=== PATIENT | male | born 2000 | race Caucasian/White ===

== ENCOUNTER 2022-04-08 22:46 | Emergency (ER) | payer SELFPAY ==
[2022-04-08 23:07] VITALS: BP 139/90
--- NOTE | 2022-04-08 23:29 | ED Psychosocial ---
General Chief Complaint: Psych/Social Disorder Stated Complaint: SUICIDAL IDEATION Nursing Triage Note: PT PRESENTS AND STATED "THE NOTE THEY FOUND WASNT EVEN A SUICIDE NOTE. I WAS JUST TELLING MY GIRLFRIEND I WAS LEAVING TOMORROW AND MY PARENTS WOULD TAKE MY PHONE". THERE IS NO ONE PRESENT WITH THE PT. PT STATED "MY GIRLFRIENDS PARENTS MADE ME COME HERE AND TOLD ME I HAVE TO CHECK MYSELF IN FOR JUST TONIGHT BECAUSE I CANT STAY THERE ANYMORE AND MY PARENTS WONT BE HERE UNTIL TOMORROW". PT DENIES SI/HI. PT STATING "THEY JUST TOLD ME I HAD TO COME HERE SO IM HERE FOR THE NIGHT" Source: patient Exam Limitations: no limitations History of Present Illness Date Seen by Provider: Apr 08, 2022 Time Seen by Provider: 23:07 Initial Comments Patient ER by private conveyance with his girlfriend's parents who dropped him off stating that they found a note and that they interpreted as being suicidal and then left before this provider could speak to them. The patient states he is not suicidal nor has he been suicidal. He has been suicidal years ago but not since has been with his girlfriend and certainly not in the past week and a half that [place] been [place] the [place]. He is originally from [place] and was staying with his girlfriend but he was apparently having a verbal altercation over the phone with the parents and so they kicked him out of the home. He is going to go home to [place]. He left a written note for his girlfriend stating that if she gets this after he left that he cared for her and still wanted to be with her but had to go home to [place]. The parents interpreted this as being suicidal but the patient is a imminently denies ever being suicidal. The police were involved tonight and they had no interest apparently and charging him with anything or taking him into protective custody and left the scene of the house. Allergies and Home Medications Allergies Coded Allergies: No Known Drug Allergies (Unverified , 04/09/22) Patient Home Medication List Home Medication List Reviewed: Yes Ondansetron (Ondansetron Odt) 4 Mg Tab.rapdis, 4 MG PO Q6H PRN for NAUSEA/VOMITING Prescribed by: RON DIXON on 04/09/22 0605 Review of Systems Constitutional: No chills, No diaphoresis EENTM: No no symptoms reported, No ear discharge, No hearing loss Respiratory: No cough, No dyspnea on exertion Cardiovascular: see HPI; No chest pain, No palpitations Gastrointestinal: No abdominal pain, No nausea, No vomiting Genitourinary: No discharge, No dysuria Musculoskeletal: No back pain, No joint pain Skin: No change in color, No lesions Psychiatric/Neurological: Denies Anxiety, Denies Depressed, Denies Headache All Other Systems Reviewed Negative Unless Noted: Yes Past Eglqfts-Vfujgd-Uvpbqw Hx Patient Social History Tobacco Use?: Yes Tobacco type used: Cigarettes Smoking Status: Current Everyday Smoker Substance use?: Yes Substance type: Marijuana Substance frequency: Daily Alcohol Use?: No Pt feels they are or have been: No Immunizations Up To Date Influenza Vaccine Up-to-Date: No; Not Current Physical Exam Vital Signs - First Documented 04/08/22 23:07 Temp 36.8 Pulse 115 Resp 20 B/P (MAP) 139/90 (106) Pulse Ox 96 Capillary Refill : Height, Weight, BMI Height: '" Weight: lbs. oz. kg; BMI Method: General Appearance: WD/WN, no apparent distress HEENT: normal ENT inspection, pharynx normal Neck: full range of motion, normal inspection Respiratory: lungs clear, normal breath sounds, no respiratory distress, no accessory muscle use Cardiovascular: normal peripheral pulses, regular rate, rhythm, no edema Peripheral Pulses: 2+ Radial Pulses (R), 2+ Radial Pulses (L) Gastrointestinal: normal bowel sounds, non tender, soft Extremities: normal range of motion, non-tender, normal capillary refill Neurologic/Psychiatric: alert, normal mood/affect, oriented x 3, other (Denies suicidal or homicidal ideation) Suicide Risk Suicide Risk Suicide Risk Level / RN Screen: Low (No risk) Low Suicide Risk Level []Suicidal Ideation WITHOUT method, intent, plan or behavior more than a month ago []]Modifiable risk factors and strong protective factors []No reported history of suicidal ideation or behavior []Patient reports/exhibits symptoms consistent with psychosis []Patient reports a plan that would be unrealistic/impossible to complete and intent []Suicide attempt prior to arrival (Indicates at LEAST Low Suicide Risk, consider other risk factors) Moderate Suicide Risk Level: []Suicidal ideation with method, WITHOUT plan, intent or behavior in the past month []Multiple risk factors and few protective factors []Patient reports intent to follow through on plan to end life if allowed to leave hospital, and has attempted to elope from the hospital High Suicide Risk Level: [] Suicidal ideation with intent or intent with a plan in the past month [] Patient has harmed self or attempted suicide while in the hospital [] Patient has hx of or current Command Auditory hallucinations to harm self or others that they follow without hesitation [] Patient refuses to disclose plan, and indicates intent to complete [] Patient reports plan that is possible to accomplish and/or has means to complete Risk factors supporting recommendation: [] Non-compliance with treatment (acute or chronic) [] Patient has access to or owns firearms and/or stockpiled medications [] Hx Impulsive behavior [] Pending incarceration or homelessness [] Sexual abuse [] Family history and/or exposure to suicide [] Adverse childhood experiences [] Exposure to violence or negative socio-political cultural, and economic forces [] Current or hx of substance use/abuse [] Chronic physical pain or other acute medical problem (AIDS, COPD, Cancer, etc) [] Perceived burden on family or others [] Patient has attempted to elope [] Unable to answer and/or unable to identify [] Refuses to agree to a safety plan Protective Factors supporting recommendation: [] Identifies reasons for living [] Future plans/goals [] Engaged in work or School [] Good family support network [] Good social support network [] Responsibility to family [] Belief that suicide is immoral, against their buddhist beliefs [] High spirituality and involvement in catholic community [] Fear of or dying due to pain and suffering [] Established outpt psychiatric services [] Unable to answer and/or unable to identify Risk Assessment Tool Score: Low Progress/Results/Core Measures Results/Orders Vital Signs/I&O 04/08/22 23:07 Temp 36.8 Pulse 115 Resp 20 B/P (MAP) 139/90 (106) Pulse Ox 96 Blood Pressure Mean: 106 Progress Progress Note : Time: 23:25 Progress Note The patient came under false pretenses believing that his girlfriend's parents told him that he had to check him for suicidal ideation even though he denies being suicidal. We explained to them that based on him being 21 years old he can make his own decisions and if he is not feeling suicidal or homicidal then he is free to go and he states that this is what he wants to do. We did do a medical screening exam and determined the patient not to have any pressing medical emergency and did give him the number for [place] [phone] save Departure Impression Primary Impression: General medical exam Disposition: HOME, SELF-CARE Condition: Stable Departure-Patient Inst. Decision time for Depature: 23:28 Referrals: NO,LOCAL PHYSICIAN (PCP/Family) Primary Care Physician Patient Instructions: Diet and Health Add. Discharge Instructions: Make plans to follow-up with a primary care provider to help manage your health. If you have concerns about mental health this following number goes to [facility]: [phone]. All discharge instructions reviewed with patient and/or family. Voiced understanding. RON DIXON Apr 08, 2022 23:29
[2022-04-09] MEDS ORDERED: ONDA4TAB11 PO (06:05)
== END 2022-04-08 23:37 | disposition home or self-care (01) ==
LOC: ER 22:48
DX: Z00.00 Encounter for general adult medical examination without abnormal findings (principal); F17.210 Nicotine dependence, cigarettes, uncomplicated; Z28.310 Unvaccinated for COVID-19
CPT/HCPCS: 99281

== ENCOUNTER 2022-04-09 02:43 | Emergency (ER) | payer SELFPAY ==
[2022-04-09 02:51] VITALS: BP 115/75
[2022-04-09 02:55] LABS: BASOPHILS # (AUTO) 0.1 10^3/uL (0.0-0.1); BASOPHILS % (AUTO) 1 % (0-10); EOSINOPHILS % (AUTO) 0 % (0-10); HEMATOCRIT 50 % (40-54); HEMOGLOBIN 16.7 g/dL (13.3-17.7); LYMPHOCYTES % (AUTO) 24 % (12-44); MEAN CORPUSCULAR HEMOGLOBIN 29 pg (25-34); MEAN CORPUSCULAR HGB CONC 34 g/dL (32-36); MEAN CORPUSCULAR VOLUME 86 fL (80-99); MEAN PLATELET VOLUME 9.6 fL (9.0-12.2); MONOCYTES # (AUTO) 0.5 10^3/uL (0.0-1.0); MONOCYTES % (AUTO) 6 % (0-12); NEUTROPHILS # (AUTO) 5.7 10^3/uL (1.8-7.8); NEUTROPHILS % (AUTO) 69 % (42-75); PLATELET COUNT 200 10^3/uL (130-400); WHITE BLOOD COUNT 8.3 10^3/uL (4.3-11.0)
[2022-04-09] MEDS ORDERED: ONDANSETRON 4 MG/2 ML (SDV) Z0FRAN IVP ONE (03:00)
[2022-04-09] MEDS ORDERED: DOXYCYCLINE INJECTION 100 MG in NS (IVPB) 100 ML IV ONE (03:00)
--- NOTE | 2022-04-09 03:04 | ED Abdominal Pain ---
General Chief Complaint: Abdominal/GI Problems Stated Complaint: SUICIDAL IDEATION Nursing Triage Note: PT REPORTS ABD PAIN WITH N/V THAT STARTED TONIGHT. REPORTS RASH FROM TICKBITE THAT STARTED AROUND 1930. Source of Information: Patient Exam Limitations: No Limitations History of Present Illness Date Seen by Provider: Apr 09, 2022 Time Seen by Provider: 02:33 Initial Comments Patient to the ER by EMS from the parking lot of [facility] with chief complaint that he recently came home was prashant. This is his second visit prashant the first time his family who he was living with dropped him off because he left a note and they interpreted this as being suicidal but he denied he was suicidal at that time. This time he says around 7:30 at night last night he was out in the [place] with his girlfriend and a whole bunch of oranges brown bugs crawled up on him that he thought were ticks and bit him. He now has a rash and is starting to get nauseated and having chills. He said no abdominal surgeries or trauma. He feels nauseated and vomited 1 time nonbilious nonbloody. He has had no diarrhea or constipation. Allergies and Home Medications Allergies Coded Allergies: No Known Drug Allergies (Unverified , 04/09/22) Patient Home Medication List Home Medication List Reviewed: Yes Review of Systems Review of Systems Constitutional: No chills, No diaphoresis EENTM: No Blurred Vision, No Double Vision Respiratory: Denies Cough, Denies Orthopnea Cardiovascular: Denies Chest Pain, Denies Lightheadedness Gastrointestinal: Denies Abdominal Pain, Denies Constipated, Denies Diarrhea; Nausea, Vomiting Genitourinary: Denies Burning, Denies Discharge Musculoskeletal: No back pain, No joint pain All Other Systems Reviewed Negative Unless Noted: Yes Past Lgatyqx-Arojbc-Kbzoji Hx Patient Social History Tobacco Use?: Yes Tobacco type used: Cigarettes Smoking Status: Current Everyday Smoker Substance use?: Yes Substance type: Marijuana Substance frequency: Daily Alcohol Use?: No Pt feels they are or have been: No Immunizations Up To Date Influenza Vaccine Up-to-Date: No; Not Current Physical Exam Vital Signs Vital Signs - First Documented 04/09/22 02:51 Temp 36.4 Pulse 87 Resp 18 B/P (MAP) 115/75 (88) Pulse Ox 98 O2 Delivery Room Air Capillary Refill : Height/Weight/BMI Height: '" Weight: lbs. oz. kg; BMI Method: General Appearance: WD/WN, no apparent distress HEENT: PERRL/EOMI, normal ENT inspection, TMs normal, pharynx normal Neck: full range of motion, supple, normal inspection Respiratory: lungs clear, normal breath sounds, no respiratory distress, no accessory muscle use Cardiovascular: normal peripheral pulses, regular rate, rhythm, no edema Gastrointestinal: normal bowel sounds, non tender, soft Extremities: normal range of motion, non-tender, normal capillary refill Neurologic/Psychiatric: alert, normal mood/affect, oriented x 3 Skin: warm/dry, rash (Abdomen and chest rash has a well-circumscribed pedro thematous nonblanchable with cleared central and more prominence around the margins and borders. Covers over his trunk in splotchy patches.) Progress/Results/Core Measures Results/Orders Lab Results Laboratory Tests Test 04/09/22 02:53 04/09/22 03:12 Range/Units White Blood Count 8.3 4.3-11.0 10^3/uL Red Blood Count 5.73 H 4.30-5.52 10^6/uL Hemoglobin 16.7 13.3-17.7 g/dL Hematocrit 50 40-54 % Mean Corpuscular Volume 86 80-99 fL Mean Corpuscular Hemoglobin 29 25-34 pg Mean Corpuscular Hemoglobin Concent 34 32-36 g/dL Red Cell Distribution Width 11.9 10.0-14.5 % Platelet Count 200 130-400 10^3/uL Mean Platelet Volume 9.6 9.0-12.2 fL Immature Granulocyte % (Auto) 0 % Neutrophils (%) (Auto) 69 42-75 % Lymphocytes (%) (Auto) 24 12-44 % Monocytes (%) (Auto) 6 0-12 % Eosinophils (%) (Auto) 0 0-10 % Basophils (%) (Auto) 1 0-10 % Neutrophils # (Auto) 5.7 1.8-7.8 10^3/uL Lymphocytes # (Auto) 2.0 1.0-4.0 10^3/uL Monocytes # (Auto) 0.5 0.0-1.0 10^3/uL Eosinophils # (Auto) 0.0 0.0-0.3 10^3/uL Basophils # (Auto) 0.1 0.0-0.1 10^3/uL Immature Granulocyte # (Auto) 0.0 0.0-0.1 10^3/uL Sodium Level 140 135-145 MMOL/L Potassium Level 4.4 3.6-5.0 MMOL/L Chloride Level 104 98-107 MMOL/L Carbon Dioxide Level 26 21-32 MMOL/L Anion Gap 10 5-14 MMOL/L Blood Urea Nitrogen 13 7-18 MG/DL Creatinine 0.94 0.60-1.30 MG/DL Estimat Glomerular Filtration Rate 119 BUN/Creatinine Ratio 14 Glucose Level 109 H 70-105 MG/DL Calcium Level 10.0 8.5-10.1 MG/DL Corrected Calcium 8.5-10.1 MG/DL Total Bilirubin 0.9 0.1-1.0 MG/DL Aspartate Amino Transf (AST/SGOT) 26 5-34 U/L Alanine Aminotransferase (ALT/SGPT) 21 0-55 U/L Alkaline Phosphatase 55 40-136 U/L C-Reactive Protein High Sensitivity 0.01 0.00-0.50 MG/DL Total Protein 8.0 6.4-8.2 GM/DL Albumin 5.0 H 3.2-4.5 GM/DL Influenza Type A (RT-PCR) Not Detected Not Detecte Influenza Type B (RT-PCR) Not Detected Not Detecte SARS-CoV-2 RNA (RT-PCR) Detected H Not Detecte My Orders Orders - RON DIXON Ed Iv/Invasive Line Start (04/09/22 02:47) Cbc With Automated Diff (04/09/22 02:47) Comprehensive Metabolic Panel (04/09/22 02:47) Hs C Reactive Protein (04/09/22 02:47) Tick Panel With Lyme Eia (04/09/22 02:47) Doxycycline Injection (Vibramycin Inject (04/09/22 03:00) Ondansetron Injection (Zofran Injectio (04/09/22 03:00) Peyton Prep (04/09/22 03:09) Covid 19 Inhouse Test (04/09/22 03:11) Influenza A And B By Pcr (04/09/22 03:11) Medications Given in ED Current Medications Medications Dose Ordered Sig/Pinky Route Start Time Stop Time Status Last Admin Dose Admin Doxycycline Hyclate 100 mg/ Sodium Chloride 100 ml @ 100 mls/hr ONCE ONCE IV 04/09/22 03:00 04/09/22 04:00 DC 04/09/22 03:12 100 MLS/HR Ondansetron HCl 8 mg ONCE ONCE IVP 04/09/22 03:00 04/09/22 03:01 DC 04/09/22 03:12 8 MG Vital Signs/I&O 04/09/22 02:51 Temp 36.4 Pulse 87 Resp 18 B/P (MAP) 115/75 (88) Pulse Ox 98 O2 Delivery Room Air Blood Pressure Mean: 88 Progress Progress Note : Time: 03:05 Progress Note His rash is nonblanchable and looks more like a tinea corporis. The patient insist that he just showed up this evening. We will get a PEYTON prep. We will give him 8 of Zofran and check some basic labs and send off for a tick panel plus give him some doxycycline. Unclear what kind of insect was biting him. Departure Impression Primary Impression: COVID-19 Additional Impression: Tinea corporis Disposition: HOME, SELF-CARE Condition: Stable Departure-Patient Inst. Decision time for Depature: 06:03 Referrals: NO,LOCAL PHYSICIAN (PCP/Family) Primary Care Physician Patient Instructions: COVID-19 (DC), Nirmatrelvir and Ritonavir FDA Fact Sheet, Fungal Skin Rash ED Add. Discharge Instructions: Drink plenty of fluids, and get plenty of rest. Tylenol 1000 mg every 8 hours as needed for headache, fever or body aches. Ibuprofen 800 mg every 8 hours as needed for headache, but fever or body aches. Paxlovid twice a day as prescribed for 5 days to reduce the severity and length of time COVID last. Ondansetron 1 tablet every 6 hours as needed for nausea and/or vomiting. Follow-up in the nearest ER if you are having oxygen saturations below 90% while at rest with shortness of air or other worrisome symptoms. All discharge instructions reviewed with patient and/or family. Voiced understanding. Scripts Ondansetron (Ondansetron Odt) 4 Mg Tab.rapdis 4 MG PO Q6H PRN for NAUSEA/VOMITING, #8 TAB 0 Refills Prov: RON DIXON 04/09/22 RON DIXON Apr 09, 2022 03:04
[2022-04-09 03:15] LABS: CHLORIDE 104 MMOL/L (98-107); POTASSIUM 4.4 MMOL/L (3.6-5.0); SODIUM 140 MMOL/L (135-145)
[2022-04-09 03:17] LABS: GLUCOSE 109 MG/DL (70-105)
[2022-04-09 03:18] LABS: CARBON DIOXIDE 26 MMOL/L (21-32)
[2022-04-09 03:19] LABS: BILIRUBIN,TOTAL 0.9 MG/DL (0.1-1.0)
[2022-04-09 03:20] LABS: ALKALINE PHOSPHATASE 55 U/L (40-136)
[2022-04-09 03:21] LABS: CREATININE SERUM 0.94 MG/DL (0.60-1.30); GFR ESTIMATED 119
[2022-04-09 03:22] LABS: BUN/CREATININE RATIO 14
[2022-04-09 03:24] LABS: ALANINE AMINOTRANSFERASE 21 U/L (0-55)
[2022-04-09] MEDS ORDERED: ONDA4TAB11 PO (06:05)
[2022-04-09] MEDS ORDERED: RX-ONDANSETRON 4 MG ODT (ZOFRAN) PPK #4 PO STA (06:05)
[2022-04-09] MEDS ORDERED: RX-NIRMATRELVIR/RITONAVIR (PAXLOVID) #30 TABS PO SCH (06:15)
== END 2022-04-09 06:11 | disposition home or self-care (01) ==
LOC: EDUNIT# 02:43 → ER 02:45
DX: U07.1 COVID-19 (principal); B35.4 Tinea corporis; F17.210 Nicotine dependence, cigarettes, uncomplicated; Z28.310 Unvaccinated for COVID-19
CPT/HCPCS: 36415; 80053; 85025; 86141; 86618; 86666; 86668; 86757; 87220; 87636